=== PATIENT | male | born 1995 | race Caucasian/White ===

== ENCOUNTER 2020-12-01 07:51 | Emergency (ER) | payer BC, OTHER ==
[2020-12-01 08:01] VITALS: BP 114/81; PULSE 137; TEMP 101.1; BMI 24.4
[2020-12-01] MEDS ORDERED: ONDANSETRON 4 MG/2 ML VIAL IVPUSH ONE (08:27)
[2020-12-01] MEDS ORDERED: SODIUM CHLORIDE 1,000 ML IV STA (08:27)
[2020-12-01] MEDS ORDERED: ACETAMINOPHEN 1000 MG/100 ML VIAL (NON FORMULARY) IVPB ONE (08:27)
[2020-12-01] MEDS ORDERED: ACETAMINOPHEN INJECTION 100 ML IVPB ONE (08:47)
[2020-12-01] MEDS ORDERED: ONDANSETRON 4 MG/2 ML VIAL ONE (08:47)
[2020-12-01 09:00] LABS: HEMATOCRIT 43.3 % (35.4-49); HEMOGLOBIN 15.1 GM/dl (11.7-16.9); MEAN CELL VOLUME 85.9 fl (80-96); MEAN PLT VOLUME 8.4 fl (7.5-11.1); PLATELET COUNT 259 K/MM3 (134-434); RBC 5.04 M/mm3 (4.00-5.60); WHITE BLOOD COUNT 14.6 K/mm3 (4.0-10.8)
[2020-12-01 09:53] LABS: ALBUMIN 4.7 g/dl (3.4-5.0); BILIRUBIN,TOTAL 1.2 mg/dL (0.2-1); BLOOD UREA NITROGEN 10.4 mg/dL (7-18); CALCIUM 9.9 mg/dL (8.5-10.1); CREATININE 1.1 mg/dL (0.55-1.3); TOT PROT 8.6 g/dl (6.4-8.2)
[2020-12-01 10:04] LABS: PLATELET ESTIMATE ADEQUATE; TOXIC GRANULATION OCCASIONAL
== END 2020-12-01 11:14 | disposition home or self-care (01) ==
LOC: FER 07:51
PROC: 3E033NZ Introduction of Analgesics, Hypnotics, Sedatives into Peripheral Vein, Percutaneous Approach (ICD-10-PCS; principal; 2020-12-01)
PROC: 3E033GC Introduction of Other Therapeutic Substance into Peripheral Vein, Percutaneous Approach (ICD-10-PCS; 2020-12-01)
PROC: 3E0337Z Introduction of Electrolytic and Water Balance Substance into Peripheral Vein, Percutaneous Approach (ICD-10-PCS; 2020-12-01)
DX: R50.9 Fever, unspecified (principal)
CPT/HCPCS: 36415; 71045-TC-FY; 80053; 83690; 85025; 87804; 99285-25; C9803; J0131; U0003; U0005

== ENCOUNTER 2021-07-09 09:17 | Emergency (ER) | payer BC ==
[2021-07-09 09:22] VITALS: BP 130/79; PULSE 93; TEMP 99.2; BMI 22.7
[2021-07-09] MEDS ORDERED: LIDOCAINE VISCOUS 2% ORAL/TOP 15 ML UNIT-DOSE CUP MM ONE (09:36)
[2021-07-09] MEDS ORDERED: ONDANSETRON *ODT* 4 MG TABLET SL ONE (09:36)
[2021-07-09] MEDS ORDERED: MAG HYDROX/AL HYDROX/SIMETH 30 ML UNIT-DOSE CUP PO ONE (09:36)
[2021-07-09] MEDS ORDERED: MAG HYDROX/AL HYDROX/SIMETH 30 ML UNIT-DOSE CUP ONE (09:49)
[2021-07-09] MEDS ORDERED: LIDOCAINE VISCOUS 2% ORAL/TOP 15 ML UNIT-DOSE CUP ONE (09:49)
== END 2021-07-09 10:20 | disposition home or self-care (01) ==
LOC: FER 09:17
DX: R10.9 Unspecified abdominal pain (principal)
CPT/HCPCS: 99283-25; Q0162

== ENCOUNTER 2023-04-15 09:20 | Emergency (ER) | payer OTHER, BC ==
[2023-04-15 09:29] VITALS: BP 127/71; PULSE 83; RESP 18; TEMP 98.5; BMI 26.4
[2023-04-15] MEDS ORDERED: ACETAMINOPHEN 325 MG TABLET (FP) PO ONE (09:52)
[2023-04-15] MEDS ORDERED: LIDOCAINE 5% TOPICAL PATCH TP ONE (09:52)
[2023-04-15] MEDS ORDERED: CYCLOBENZAPRINE HCL 10 MG TABLET (FP) PO ONE (09:53)
[2023-04-15] MEDS ORDERED: ACETAMINOPHEN 325 MG TABLET (FP) ONE (10:16)
[2023-04-15] MEDS ORDERED: LIDOCAINE 5% TOPICAL PATCH ONE (10:16)
[2023-04-15] MEDS ORDERED: CYCLOBENZAPRINE HCL 10 MG TABLET (FP) ONE (10:16)
[2023-04-15] MEDS ORDERED: diazePAM 2 MG TABLET PO ONE (11:01)
[2023-04-15] MEDS ORDERED: diazePAM 2 MG TABLET ONE (11:12)
[2023-04-15] MEDS ORDERED: LIDOCAINE PATCH REMOVAL MC SCH (22:00)
== END 2023-04-15 11:55 | disposition home or self-care (01) ==
LOC: JERFT 09:20
DX: M54.50 Low back pain, unspecified (principal); S39.012A Strain of muscle, fascia and tendon of lower back, initial encounter; X50.0XXA Overexertion from strenuous movement or load, initial encounter
CPT/HCPCS: 99283-25

== ENCOUNTER 2023-11-23 11:41 | Emergency (ER) | payer BC, OTHER ==
[2023-11-23 11:46] VITALS: BP 129/78; PULSE 91; RESP 18; TEMP 98.1; BMI 29.2
== END 2023-11-23 12:51 | disposition home or self-care (01) ==
LOC: JERFT 11:41
DX: F40.218 Other animal type phobia (principal); W55.59XA Other contact with raccoon, initial encounter
CPT/HCPCS: 99283-25

== ENCOUNTER 2023-12-14 09:42 | Emergency (ER) | payer OTHER, BC ==
[2023-12-14] MEDS ORDERED: ACETAMINOPHEN 325 MG TABLET (FP) ONE (10:21)
[2023-12-14] MEDS ORDERED: LIDOCAINE 5% TOPICAL PATCH ONE (10:21)
[2023-12-14] MEDS: LIDOCAINE 5% TOPICAL PATCH TP ONE (10:27)
[2023-12-14] MEDS: ACETAMINOPHEN 325 MG TABLET (FP) PO ONE (10:27)
[2023-12-14 10:32] VITALS: BP 135/81; PULSE 98; RESP 18; TEMP 98.1; BMI 31.1
[2023-12-14] MEDS ORDERED: LIDOCAINE PATCH REMOVAL MC SCH (22:00)
== END 2023-12-14 10:54 | disposition home or self-care (01) ==
LOC: FER 09:42
DX: R51.9 Headache, unspecified (principal); M54.50 Low back pain, unspecified; W22.8XXA Striking against or struck by other objects, initial encounter; Y99.0 Civilian activity done for income or pay
CPT/HCPCS: 99283-25

== ENCOUNTER 2024-02-22 07:58 | Emergency (ER) | payer BC, OTHER ==
[2024-02-22 08:25] VITALS: BP 137/77; PULSE 113; RESP 16; TEMP 99.3; BMI 31.8
[2024-02-22] MEDS ORDERED: FAMOTIDINE 20 MG TABLET ONE (08:45)
[2024-02-22] MEDS ORDERED: ACETAMINOPHEN 500 MG TABLET (FP) ONE (08:45)
[2024-02-22] MEDS ORDERED: MAG HYDROX/AL HYDROX/SIMETH 30 ML UNIT-DOSE CUP ONE (08:46)
[2024-02-22] MEDS ORDERED: ONDANSETRON *ODT* 4 MG TABLET ONE (08:46)
[2024-02-22] MEDS: MAG HYDROX/AL HYDROX/SIMETH 30 ML UNIT-DOSE CUP PO ONE (08:47)
[2024-02-22] MEDS: ONDANSETRON *ODT* 4 MG TABLET SL ONE (08:47)
[2024-02-22] MEDS: ACETAMINOPHEN 500 MG TABLET (FP) PO ONE (08:47)
[2024-02-22] MEDS: FAMOTIDINE 20 MG TABLET PO ONE (08:47)
[2024-02-22 12:30] LABS: THROAT:GRP A STREP NOT DETECTED (NOTDETECTED)
== END 2024-02-22 10:07 | disposition home or self-care (01) ==
LOC: FER 07:58
DX: R05.9 Cough, unspecified (principal); R53.83 Other fatigue; M79.10 Myalgia, unspecified site; J06.9 Acute upper respiratory infection, unspecified; U07.1 COVID-19
CPT/HCPCS: 0241U-QW; 71046-TC-FY; 87651; 99284-25; Q0162